=== PATIENT | male | born 1955 | race Caucasian/White ===

== ENCOUNTER → 2019-01-01 | Outpatient (CLI) | payer OTHER ==
--- NOTE | 2019-01-01 17:08 | PCVCIMAG ---
APPROVED REPORT Study performed: 01/01/2019 16:04:03 Exam: Stress Echocardiogram Indication: Hyperlipidemia, Hypertension, Chest pain, Dyspnea Patient Location: Echo lab Stress Nurse: Nelsy Farris RN Status: routine Ht: 6 ft 0 in HR: 67 bpm BP: 132/70 mmHg Rhythm: NSR Medical History Medical History: Hyperlipidemia, HTN Exercise History: Physically active Procedure The patient underwent an Exercise Stress Test using the Elier Protocol. Blood pressure, heart rate, and EKG were monitored. An Echocardiogram was performed by cad technician in four stages in quad fashion. At peak stress, four selected images were obtained and placed side by side with resting images for comparison. Stress Test Details Stress Test: Exercise stress testing was performed using a Elier protocol. HR Resting HR: 67 bpmMax Heart Rate (APMHR): 159 bpm Max HR Achieved: 153 bpmTarget HR (85% APMHR): 135 bpm % of APMHR: 96 Recovery HR: 83 bpm HR response to stress: Normal HR response to stress BP Resting BP: 132/70 mmHg Max BP: 146/80 mmHg Recovery BP: 83/ mmHg BP response to stress: Normal blood pressure response to stress. ECG Resting ECG: Sinus Rhythm Stress ECG: Sinus Rhythm ST Change: Downsloping ST depression Maximum ST Deviation: 1.5 mm Arrhythmia: VPC's Recovery ECG: Sinus Rhythm Recovery ST Change: Horizontal ST depression Recovery ST Deviation: 0.5 mm Recovery Arrhythmia: VPC Clinical Reason for Termination: Maximal effort Exercise duration: 9 min 33 sec Highest Stage Achieved: Stage 4: 4.2 mph at 16% grade. Exercise capacity: 11.90 METs Overall Exercise Capacity for Age: Good Angina Score: Exercise-Limiting Stress ECG Conclusion Abnormal exercise ECG with clinical and ECG evidence for stress-induced myocardial ischemia. Solis Treadmill Score is -6.5 which is Moderate risk. Pre-Stress Echo The resting Echocardiogram showed normal left ventricular contractility with an estimated Ejection Fraction of about 55-60%. Post-Stress Echo The stress Echocardiogram showed normal left ventricular contractility with an estimated Ejection Fraction of about 55-60%. Hypokinesis involving the septum and inferior gamez Conclusion Clinical Response: Ischemic Exercise Capacity: Average Stress ECG Response: Ischemic Stress Echo Images: Ischemic Coronary angiography recommended, scheduled <Conclusion> Coronary angiography recommended, scheduled
== END | disposition home or self-care (01) ==
LOC: PCVCIMAG 15:16
PROVIDERS: ATTEND Internal Medicine
DX: E78.5 Hyperlipidemia, unspecified (principal); I10 Essential (primary) hypertension; R07.9 Chest pain, unspecified; R06.09 Other forms of dyspnea
CPT/HCPCS: 93325; 93351

== ENCOUNTER → 2019-01-24 | Outpatient (CLI) | payer OTHER ==
--- NOTE | 2019-01-24 17:03 | PCVCIMAG ---
APPROVED REPORT Indications Bruit Risk Factors Hypertension: Hyperlipidemia CAD Doppler Spectral Velocity Analysis PSV / EDVPSV / EDV ECA (R) 62 / 16 cm/sECA (L) 84 / 14 cm/s dICA (R) 61 / 23 cm/sdICA (L) 58 / 23 cm/s Brandt (R) 74 / 32 cm/smICA (L) 71 / 29 cm/s pICA (R) 62 / 23 cm/spICA (L) 73 / 18 cm/s Bulb (R) 57 / 19 cm/sBulb (L) 63 / 15 cm/s dCCA (R) 74 / 18 cm/sdCCA (L) 84 / 22 cm/s mCCA (R) 89 / 13 cm/smCCA (L) 109 / 23 cm/s Vert (R) 51 / 18 cm/sVert (L) 47 / 14 cm/s ICA/CCA 0.87 ICA/CCA 0.84 Basic Measurements Blood Pressure: Pulses: Right Left RightLeft Brachial(Sitting) 102/78fgSp922/72mmHgTemporal Real Time B-Mode Imaging Vert. (R)AntegradeVert. (L)Antegrade Findings The right carotid bulb has minimal plaque. The right proximal internal carotid artery shows no significant stenosis. The right common carotid artery shows no significant stenosis. The right external carotid artery shows no significant stenosis. The left carotid bulb has minimal plaque. The left proximal internal carotid artery shows no significant stenosis. The left common carotid artery shows no significant stenosis. The left external carotid artery shows no significant stenosis. Conclusion 1. Minimal bilateral plaquing without evidence of significant stenosis. 2. Antegrade vertebral flow.
--- NOTE | 2019-01-24 17:23 | PCVCIMAG ---
APPROVED REPORT Study performed: 01/24/2019 13:35:56 EXAM: Comprehensive 2D, Doppler, and color-flow Echocardiogram Patient Location: Echo lab Room #: [id number]: routine BSA: 2.09 HR: 68 bpmBP: 112/64 mmHg Rhythm: NSR Other Information Study Quality: Good Risk Factors: Cardiac Risk Factors: HTN, FHX of CAD Indications Pre-Op Dyspnea CAD Chest Pain Abnormal Stress Echo 2D Dimensions IVSd: 9.54 (7-11mm)LVOT Diam: 23.68 (18-24mm) LVDd: 42.48 mm PWd: 10.95 (7-11mm)Ascending Ao: 30.73 (22-36mm) LVDs: 26.64 (25-40mm) Left Atrium: 42.44 (27-40mm) Aortic Root: 29.16 mm LV Single Plane 4CH: 50.68 % LV Single Plane 2CH: 68.73 % Biplane EF: 61.0 % Volumes Left Atrial Volume (Systole) Single Plane 4CH: 68.12 mLSingle Plane 2CH: 72.92 mL Biplane LA Volume: 73.00 mLLA ESV Index: 35.00 mL/m2 Aortic Valve AoV Peak Frederic.: 1.31 m/s AO Peak Gr.: 6.89 mmHgLVOT Max P.47 mmHg LVOT Max V: 0.93 m/s DEV Vmax: 3.12 cm2 Mitral Valve E/A Ratio: 1.2 MV Decel. Time: 192.49 ms MV E Max Frederic.: 0.65 m/s MV A Frederic.: 0.53 m/s IVRT: 89.97 ms TDI E/Lateral E': 5.00E/Medial E': 7.22 Medial E' Frederic.: 0.09 m/s Lateral E' Frederic.: 0.13 m/s Pulmonary Valve PV Peak Frederic.: 1.11 m/sPV Peak Gr.: 4.94 mmHg Pulmonary Vein P Vein S: 0.41 m/sP Vein A: 0.27 m/s P Vein D: 0.46 m/sP Vein A Dur.: 93.4 msec P Vein S/D Ratio: 0.89 Tricuspid Valve TR Peak Frederic.: 1.74 m/s TR Peak Gr.: 12.14 mmHg TV Vmax: 0.68 m/sPA Pressure: 19.00 mmHg Left Ventricle The left ventricle is normal size. There is normal LV segmental wall motion. There is normal left ventricular wall thickness. Left ventricular systolic function is normal. The left ventricular ejection fraction is within the normal range. LVEF is 60-65%. The left ventricular diastolic function is normal. Right Ventricle The right ventricle is normal size. The right ventricular systolic function is normal. Atria Left atrium is borderline dilated. The right atrium size is normal. Aortic Valve Aortic valve is trileaflet. The aortic valve is normal in structure and function. No aortic regurgitation is present. There is no aortic valvular stenosis. Mitral Valve The mitral valve is normal in structure. There is no mitral valve regurgitation noted. No evidence of mitral valve stenosis. Tricuspid Valve The tricuspid valve is normal in structure. There is no tricuspid valve regurgitation noted. Pulmonic Valve The pulmonary valve is normal in structure. There is no pulmonic valvular regurgitation. Great Vessels The aortic root is normal in size. The ascending aorta is normal in size. IVC is normal in size and collapses >50% with inspiration. Pericardium There is no pericardial effusion. There is no pleural effusion. <Conclusion> Left ventricular systolic function is normal. There is normal LV segmental wall motion. LVEF is 60-65%. Normal diastolic function Aortic valve is trileaflet. No aortic regurgitation or stenosis The mitral valve is normal in structure. No mitral valve regurgitation Pulmonary artery pressure could not be reliably ascertained. There is no pericardial effusion.
== END | disposition home or self-care (01) ==
LOC: PCVCIMAG 13:31
PROVIDERS: ATTEND Internal Medicine
DX: I65.23 Occlusion and stenosis of bilateral carotid arteries (principal); R09.89 Other specified symptoms and signs involving the circulatory and respiratory systems; R06.00 Dyspnea, unspecified; I25.10 Atherosclerotic heart disease of native coronary artery without angina pectoris; R94.39 Abnormal result of other cardiovascular function study
CPT/HCPCS: 93306; 93880